=== PATIENT | male | born 1990 | race African-American/Black ===

== ENCOUNTER 2019-05-24 11:50 | Emergency (ER) | payer SELFPAY ==
[~2019-05-24] VITALS: Ht 188 cm; Wt 92.1 kg
[2019-05-24 14:18] VITALS: BP 129/83
[2019-05-24] MEDS ORDERED: IBUPROFEN 800 MG TAB PO ONE (15:30)
[2019-05-24] MEDS ORDERED: METHOCARBAMOL 500 MG TAB PO ONE (15:30)
== END 2019-05-24 15:39 | disposition home or self-care (01) ==
LOC: ER 11:50
DX: M25.511 Pain in right shoulder (principal); M62.838 Other muscle spasm; F17.210 Nicotine dependence, cigarettes, uncomplicated; V43.62XA Car passenger injured in collision with other type car in traffic accident, initial encounter; Y93.89 Activity, other specified; Y99.8 Other external cause status; Y92.410 Unspecified street and highway as the place of occurrence of the external cause